=== PATIENT | female | born 2000 | race Caucasian/White ===

== ENCOUNTER 2023-02-22 16:24 | Emergency (ER) | payer BC ==
[2023-02-22] MEDS ORDERED: Sodium Chloride 0.9% 1,000 ML IV ONE ×2 (17:08→18:24)
[2023-02-22] MEDS ORDERED: Ketorolac 30 MG/ML SDV IVPUSH ONE (17:08)
[2023-02-22 17:40] LABS: BASOPHILS ABSOLUTE AUTO 0.04 K/uL (0.00-0.20); BASOPHILS PERCENT AUTO 0.2 % (0.0-1.0); HEMOGLOBIN 14.1 g/dL (12.0-16.0); IMMATURE GRAN ABSOLUTE AUTO 0.06 K/uL (0.00-0.05); IMMATURE GRAN PERCENT AUTO 0.3 % (0.0-0.4); LYMPHOCYTES ABSOLUTE AUTO 0.59 K/uL (1.00-4.80); LYMPHOCYTES PERCENT AUTO 3.2 % (24.0-44.0); MEAN CORPUSCULAR HEMOGLOBIN 31.2 pg (28.0-32.0); MEAN CORPUSCULAR HGB CONC 35.3 g/dL (32.0-36.0); MEAN CORPUSCULAR VOLUME 88.5 fL (83.0-99.0); MEAN PLATELET VOLUME 10.4 fL (9.4-12.3); MONOCYTES ABSOLUTE AUTO 1.06 K/uL (0.00-0.80); MONOCYTES PERCENT AUTO 5.7 % (0.0-8.0); NEUTROPHILS ABSOLUTE AUTO 16.86 K/uL (1.80-7.70); NEUTROPHILS PERCENT AUTO 90.6 % (41.0-71.0); PLATELET COUNT,PLT 234 K/uL (150-400); RED BLOOD CELL COUNT 4.52 M/uL (4.10-5.30); WHITE BLOOD CELL COUNT,WBC 18.61 K/uL (3.9-11.3)
[2023-02-22 17:56] LABS: GLUCOSE,URINE NEGATIVE (NEGATIVE); KETONES,URINE 15 mg/dL (NEGATIVE); LEUKOCYTE ESTERASE,URINE LARGE (NEGATIVE); NITRITE,URINE POSITIVE (NEGATIVE); OCCULT BLOOD,URINE LARGE (NEGATIVE); PH,URINE 6.5 (5.0-8.0); PROTEIN,URINE 100 mg/dL (NEGATIVE); UROBILINOGEN,URINE 0.2 EU/dL (<2.0)
[2023-02-22 18:11] LABS: APPEARANCE,URINE CLOUDY; BILIRUBIN,URINE SMALL (NEGATIVE); COLOR,URINE RED
[2023-02-22 18:12] LABS: BACTERIA,URINE 1+ (NEGATIVE); MUCUS,URINE LIGHT (NONE-MOD); RBC,URINE TOO NUMEROUS TO CT (0-2/HPF); SQUAMOUS EPITHELIAL CELLS,UR FEW; WBC,URINE TO NUMEROUS TO COUNT (0-5/HPF)
[2023-02-22] MEDS ORDERED: cefTRIAXone 1 GM in Sodium Chloride 0.9% 50 ML IV ONE (18:18)
[2023-02-22 18:24] LABS: A/G RATIO 1.4 (0.9-1.6); ALBUMIN 4.5 g/dL (3.4-5.0); BILIRUBIN TOTAL 0.6 mg/dL (0.2-1.0); CALCIUM 9.1 mg/dL (8.5-10.1); CARBON DIOXIDE,CO2 21.7 mmol/L (21.0-32.0); CREATININE 1.1 mg/dL (0.6-1.0); EST CRCL DRUG DOSING (CG) 72.19 mL/min; POTASSIUM,K 3.2 mmol/L (3.5-5.1); PROTEIN TOTAL,TP 7.7 g/dL (6.4-8.2)
[2023-02-22] MEDS ORDERED: Potassium Chloride 20 MEQ Tab.ER PO ONE (18:52)
[2023-02-22] MEDS ORDERED: Phenazopyridine 200 MG Tab PO ONE (20:16)
[2023-02-22] MEDS ORDERED: traMADol 50 MG Tab PO ONE (20:16)
== END 2023-02-22 20:30 | disposition home or self-care (01) ==
LOC: MW.ED 16:24
DX: N12 Tubulo-interstitial nephritis, not specified as acute or chronic (principal); Z88.5 Allergy status to narcotic agent
CPT/HCPCS: 36415; 74176; 80053; 81001; 81025; 83605; 85025; 87040; 96361; 96365; 96375; 99284; A9270; J0696; J1885; J3490; J7030